=== PATIENT | male | born 1955 | race Caucasian/White ===

== ENCOUNTER 2019-05-26 13:11 | Emergency (ER) | payer OTHER ==
[2019-05-26] MEDS ORDERED: Sodium Chloride 0.9% 10 ML Syringe FLUSH PRN (14:44)
--- NOTE | 2019-05-26 15:13 | EDM.PDOC ---
<Jaimee Samayoa - Last Filed: 05/26/19 18:33> ED HPI GENERAL MEDICAL PROBLEM - General Chief Complaint: Cardiovascular Problem Stated Complaint: NAUSEA Time Seen by Provider: 05/26/19 14:30 Source of Information: Reports: Patient, Family, RN, RN Notes Reviewed History Limitations: Reports: No Limitations - History of Present Illness INITIAL COMMENTS - FREE TEXT/NARRATIVE: patient presents to ER with complaint of chest pain/burning that radiates to the back. He states he also had some numbness down the left arm. Patient states this began about 12:30 today. She states he was working in the garage and going up and down a ladder. Patient states he has 0 pain at this time. When the pain was present he rated the pain a 2-3/10. Patient states he did get nauseated with this episode as well. Denies shortness of breath, vomiting, or diarrhea. Patient admits to hypertension, hyperlipidemia. He states he does not have diabetes, and does have some family history of cardiac disease in his family including his brother and his father. Patient states he smokes minimally, maybe once a week. Denies any cardiac history himself. Onset: Today, Sudden Left Arm Pain Score (Numeric/FACES): 2 - Related Data Allergies Allergy/AdvReac Type Severity Reaction Status Date / Time No Known Allergies Allergy Verified 05/26/19 14:28 Home Meds: Home Meds Aspirin [Halfprin] 81 mg PO DAILY 05/26/19 [History] Losartan [Cozaar] 50 mg PO BID 05/26/19 [History] Past Medical History HEENT History: Reports: Impaired Vision Cardiovascular History: Reports: High Cholesterol - Infectious Disease History Infectious Disease History: Reports: Rheumatic Fever - Past Surgical History Musculoskeletal Surgical History: Reports: Hip Replacement Social & Family History - Tobacco Use Smoking Status *Q: Never Smoker Second Hand Smoke Exposure: No - Recreational Drug Use Recreational Drug Use: No ED ROS GENERAL - Review of Systems Review Of Systems: Comprehensive ROS is negative, except as noted in HPI. ED EXAM, GENERAL - Physical Exam Exam: See Below Exam Limited By: No Limitations General Appearance: Alert, WD/WN, No Apparent Distress Eye Exam: Bilateral Eye: EOMI, Normal Inspection Ears: Normal External Exam, Hearing Grossly Normal Nose: Normal Inspection Throat/Mouth: Normal Inspection, Normal Voice, No Airway Compromise Head: Atraumatic, Normocephalic Neck: Normal Inspection, Supple, Non-Tender, Full Range of Motion Respiratory/Chest: No Respiratory Distress, Lungs Clear, Normal Breath Sounds, No Accessory Muscle Use, Chest Non-Tender Cardiovascular: Normal Peripheral Pulses, Regular Rate, Rhythm, No Edema, No Gallop, No JVD, No Murmur, No Rub Peripheral Pulses: 2+: Radial (L), Radial (R) GI/Abdominal: Normal Bowel Sounds, Soft, Non-Tender, No Organomegaly, No Distention (Male) Exam: Deferred Rectal (Males) Exam: Deferred Back Exam: Normal Inspection, Full Range of Motion, NT Extremities: Normal Inspection, Normal Range of Motion, Non-Tender, Normal Capillary Refill, No Pedal Edema Neurological: Alert, Oriented, CN II-XII Intact, Normal Cognition, Normal Gait, Normal Reflexes, No Motor/Sensory Deficits Psychiatric: Normal Affect, Normal Mood Skin Exam: Warm, Dry, Intact, Normal Color, No Rash Lymphatic: No Adenopathy Course - Vital Signs Last Recorded V/S: Last Vital Signs Temp 36.8 C 05/26/19 14:22 Pulse 74 05/26/19 14:22 Resp 18 05/26/19 14:22 BP 135/74 05/26/19 14:22 Pulse Ox 97 05/26/19 14:22 - Orders/Labs/Meds Orders: Active Orders 24 hr Category Date Time Status EKG Documentation Completion [RC] STAT Care 05/26/19 14:44 Active EKG Documentation Completion [RC] STAT Care 05/26/19 18:52 Active Peripheral IV Care [RC] . DIRECTED Care 05/26/19 14:44 Active Chest 1V Frontal [CR] Stat Exams 05/26/19 14:44 Taken Sodium Chloride 0.9% [Normal Saline] 1,000 ml Med 05/26/19 15:49 Active IV .BOLUS Sodium Chloride 0.9% [Saline Flush] Med 05/26/19 14:44 Active 10 ml FLUSH ASDIRECTED PRN Peripheral IV Insertion Adult [OM.PC] Stat Oth 05/26/19 14:44 Ordered Medication Orders Sodium Chloride (Normal Saline) 1,000 mls @ 200 mls/hr IV .BOLUS ONE Stop: 05/26/19 20:48 Last Admin: 05/26/19 16:02 Dose: 200 mls/hr Sodium Chloride (Saline Flush) 10 ml FLUSH ASDIRECTED PRN PRN Reason: Keep Vein Open Last Admin: 05/26/19 15:15 Dose: 10 ml Labs: Laboratory Tests 05/26/19 05/26/19 05/26/19 Range/Units 14:52 14:52 14:52 WBC 16.0 H (5.0-10.0) 10^3/uL RBC 5.43 (4.6-6.2) 10^6/uL Hgb 16.2 (14.0-18.0) g/dL Hct 46.1 (40.0-54.0) % MCV 84.9 (80-100) fL MCH 29.8 (27.0-34.0) pg MCHC 35.1 H (33.0-35.0) g/dL Plt Count 224 (150-450) 10^3/uL Neut % (Auto) 83.8 H (42.2-75.2) % Lymph % (Auto) 10.3 L (20.5-50.1) % [place] % (Auto) 4.9 (2-8) % Eos % (Auto) 0.8 L (1.0-3.0) % Baso % (Auto) 0.2 (0.0-1.0) % PT 9.7 (9.0-12.0) SEC INR 0.9 (0.9-1.2) Sodium 136 (135-145) mmol/L Potassium 3.8 (3.6-5.0) mmol/L Chloride 104 (101-111) mmol/L Carbon Dioxide 23.0 (21.0-31.0) mmol/L Anion Gap 12.8 BUN 21 H (7-18) mg/dL Creatinine 1.2 (0.6-1.3) mg/dL Est Cr Clr Drug Dosing 59.67 mL/min Estimated GFR (MDRD) > 60 BUN/Creatinine Ratio 17.50 Glucose 94 (74-105) mg/dL Calcium 9.1 (8.4-10.2) mg/dl Total Bilirubin 1.0 (0.2-1.0) mg/dL AST 54 H (10-42) IU/L ALT 38 (10-60) IU/L Alkaline Phosphatase 45 (42-121) IU/L Troponin I < 0.02 (0.00-0.02) ng/ml Total Protein 6.8 (6.7-8.2) g/dl Albumin 4.4 (3.2-5.5) g/dl Globulin 2.4 Albumin/Globulin Ratio 1.83 05/26/19 05/26/19 Range/Units 18:55 18:55 WBC 9.3 (5.0-10.0) 10^3/uL RBC 5.06 (4.6-6.2) 10^6/uL Hgb 14.9 (14.0-18.0) g/dL Hct 43.6 (40.0-54.0) % MCV 86.2 (80-100) fL MCH 29.4 (27.0-34.0) pg MCHC 34.2 (33.0-35.0) g/dL Plt Count 206 (150-450) 10^3/uL Neut % (Auto) 71.2 (42.2-75.2) % Lymph % (Auto) 20.4 L (20.5-50.1) % [place] % (Auto) 6.8 (2-8) % Eos % (Auto) 1.4 (1.0-3.0) % Baso % (Auto) 0.2 (0.0-1.0) % PT (9.0-12.0) SEC INR (0.9-1.2) Sodium (135-145) mmol/L Potassium (3.6-5.0) mmol/L Chloride (101-111) mmol/L Carbon Dioxide (21.0-31.0) mmol/L Anion Gap BUN (7-18) mg/dL Creatinine (0.6-1.3) mg/dL Est Cr Clr Drug Dosing mL/min Estimated GFR (MDRD) BUN/Creatinine Ratio Glucose (74-105) mg/dL Calcium (8.4-10.2) mg/dl Total Bilirubin (0.2-1.0) mg/dL AST (10-42) IU/L ALT (10-60) IU/L Alkaline Phosphatase (42-121) IU/L Troponin I < 0.02 (0.00-0.02) ng/ml Total Protein (6.7-8.2) g/dl Albumin (3.2-5.5) g/dl Globulin Albumin/Globulin Ratio Meds: Medications Generic Name Dose Route Start Last Admin Trade Name Jomar PRN Reason Stop Dose Admin Sodium Chloride 1,000 mls @ 200 mls/hr 05/26/19 15:49 05/26/19 16:02 Normal Saline IV 05/26/19 20:48 200 mls/hr .BOLUS ONE Administration Sodium Chloride 10 ml 05/26/19 14:44 05/26/19 15:15 Saline Flush FLUSH 10 ml ASDIRECTED PRN Administration Keep Vein Open - Radiology Interpretation Free Text/Narrative:: Chest xray: FINDINGS: Lungs: Unremarkable. No consolidation. Pleural space: Unremarkable. No pleural effusion. No pneumothorax. Heart/Mediastinum: Unremarkable. No cardiomegaly. Bones/joints: Unremarkable. IMPRESSION: No acute findings. Thank you for allowing us to participate in the care of your patient. Dictated and Authenticated by: Hayden Brown DO 05/26/2019 3:09 PM Central Time ([place] & [place]) See rad report Departure - Departure Disposition: Home, Self-Care 01 Clinical Impression: Chest pain Qualifiers: Chest pain type: unspecified Qualified Code(s): R07.9 - Chest pain, unspecified Instructions: Chest Wall Pain, [id number] Forms: ED Department Discharge Additional Instructions: 1) rest and avoid bending lifting straining 2) recheck if there is any change or concern Sepsis Event Note - Evaluation Sepsis Screening Result: No Definite Risk - Focused Exam Vital Signs: Vital Signs Temp Pulse Resp BP Pulse Ox 05/26/19 14:22 36.8 C 74 18 135/74 97 Date Exam was Performed: 05/26/19 Time Exam was Performed: 18:33 <Jadon Carr - Last Filed: 05/26/19 20:09> Course - Re-Assessments/Exams Free Text/Narrative Re-Assessment/Exam: 05/26/19 20:07 re-exam; pt has no pain fells fine. repeat ekg & trop negative. pt states the pain occurred this morning only lasted about hour ut decided to have it check. Departure - Departure Time of Disposition: 20:09 Condition: Good Sepsis Event Note - Focused Exam Date Exam was Performed: 05/26/19 Time Exam was Performed: 20:07
[2019-05-26 15:18] LABS: ANION GAP 12.8; CHLORIDE,CL 104 mmol/L (101-111); SODIUM,NA 136 mmol/L (135-145)
[2019-05-26] MEDS ORDERED: Sodium Chloride 0.9% 1,000 ML IV ONE (15:49)
== END 2019-05-26 20:35 | disposition home or self-care (01) ==
LOC: DL.ED 13:11
DX: R07.9 Chest pain, unspecified (principal); Z79.82 Long term (current) use of aspirin
CPT/HCPCS: 36415; 71045; 80053; 84484; 85025; 85610; 93005; 96360; 96361; 99285; J7030

== ENCOUNTER 2020-06-12 17:43 | Emergency (ER) | payer OTHER ==
[2020-06-12] MEDS ORDERED: Ondansetron 4 MG Tab.DIS PO ONE (17:44)
[2020-06-12] MEDS ORDERED: Ondansetron 4 MG/2 ML SDV IVPUSH ONE (19:08)
[2020-06-12] MEDS ORDERED: Sodium Chloride 0.9% 1,000 ML IV ONE (19:08)
[2020-06-12 20:08] LABS: CHLORIDE,CL 100 mmol/L (98-107); SODIUM,NA 140 mmol/L (136-145)
[2020-06-12 20:18] LABS: CORONAVIRUS COVID-19 NAA NEGATIVE (NEGATIVE)
[2020-06-12] MEDS ORDERED: Iopamidol 612 MG/ML 100 ML Bottle IVPUSH ONE (20:23)
--- NOTE | 2020-06-12 20:29 | EDM.PDOC ---
ED HPI GENERAL MEDICAL PROBLEM - General Chief Complaint: Gastrointestinal Problem Stated Complaint: THROWING UP, CHILLS Time Seen by Provider: 06/12/20 20:15 Source of Information: Reports: Patient History Limitations: Reports: No Limitations - History of Present Illness INITIAL COMMENTS - FREE TEXT/NARRATIVE: This 65 yo male patient reports to the ED due to a 2 day history of nausea/vomiting along with left upper quadrant abdominal pain. The patient reports he has not been able to rest due to nausea/vomiting. The patient reports he has not been able to do anything to make his symptoms better or worse. The patient denies any recent alcohol use. Onset Date: 06/11/20 Duration: Constant Location: Reports: Abdomen Quality: Reports: Other Severity: Moderate Improves with: Reports: None Worsens with: Reports: None Context: Reports: Other Associated Symptoms: Reports: Nausea/Vomiting Abdomen Pain Score (Numeric/FACES): 7 - Related Data Allergies Allergy/AdvReac Type Severity Reaction Status Date / Time No Known Allergies Allergy Verified 06/12/20 19:07 Home Meds: Home Meds Aspirin [Halfprin] 81 mg PO DAILY 05/26/19 [History] Losartan [Cozaar] 25 mg PO BID 05/26/19 [History] Losartan [Cozaar] 50 mg PO BEDTIME 06/12/20 [History] Past Medical History HEENT History: Reports: Impaired Vision Cardiovascular History: Reports: High Cholesterol, Hypertension - Infectious Disease History Infectious Disease History: Reports: Rheumatic Fever - Past Surgical History Musculoskeletal Surgical History: Reports: Hip Replacement Social & Family History - Tobacco Use Tobacco Use Status *Q: Never Tobacco User - Caffeine Use Caffeine Use: Reports: Soda - Recreational Drug Use Recreational Drug Use: No ED ROS GENERAL - Review of Systems Review Of Systems: Comprehensive ROS is negative, except as noted in HPI. ED EXAM, GI/ABD - Physical Exam Exam: See Below Exam Limited By: No Limitations General Appearance: Alert, WD/WN, Moderate Distress Eyes: Bilateral: Normal Appearance, EOMI Ears: Normal External Exam, Normal Canal, Hearing Grossly Normal, Normal TMs Nose: Normal Inspection, Normal Mucosa, No Blood Throat/Mouth: Normal Inspection, Normal Lips, Normal Teeth, Normal Gums, Normal Oropharynx, Normal Voice, No Airway Compromise Head: Atraumatic, Normocephalic Neck: Normal Inspection, Supple, Non-Tender, Full Range of Motion Respiratory/Chest: No Respiratory Distress, Lungs Clear, Normal Breath Sounds, No Accessory Muscle Use, Chest Non-Tender Cardiovascular: Normal Peripheral Pulses, Regular Rate, Rhythm, No Edema, No Gallop, No JVD, No Murmur, No Rub GI/Abdominal Exam: Tender (Left upper quadrant abdominal pain) (Male) Exam: Deferred Rectal (Males) Exam: Deferred Back Exam: Normal Inspection, Full Range of Motion, NT Extremities: Normal Inspection, Normal Range of Motion, Non-Tender, Normal Capillary Refill, No Pedal Edema Neurological: Alert, Oriented, CN II-XII Intact, Normal Cognition, Normal Gait, Normal Reflexes, No Motor/Sensory Deficits Psychiatric: Normal Affect, Normal Mood Skin Exam: Warm, Dry, Intact, Normal Color, No Rash Lymphatic: No Adenopathy Course - Vital Signs Last Recorded V/S: Last Vital Signs Temp 36.2 C 06/12/20 19:11 Pulse 82 06/12/20 19:11 Resp 16 06/12/20 19:11 BP 176/84 H 06/12/20 19:11 Pulse Ox 100 06/12/20 19:11 - Orders/Labs/Meds Orders: Active Orders 24 hr Category Date Time Status CULTURE BLOOD [BC] Stat Lab 06/12/20 19:24 Received DRUG SCREEN URINE BIORAD [URCHEM] Stat Lab 06/12/20 19:08 Ordered UA RFX NIKITA AND CULT IF INDIC [URIN] Urgent Lab 06/12/20 19:08 Ordered Sodium Chloride 0.9% [Normal Saline] 1,000 ml Med 06/12/20 19:08 Active IV .BOLUS Medication Orders Sodium Chloride (Normal Saline) 1,000 mls @ 250 mls/hr IV .BOLUS ONE Stop: 06/12/20 23:07 Last Admin: 06/12/20 19:24 Dose: 250 mls/hr Documented by: [id number] Labs: Laboratory Tests 06/12/20 06/12/20 06/12/20 Range/Units 19:13 19:24 19:24 WBC 8.9 (5.0-10.0) 10^3/uL RBC 5.75 (4.6-6.2) 10^6/uL Hgb 17.3 D (14.0-18.0) g/dL Hct 48.7 (40.0-54.0) % MCV 84.7 (80-100) fL MCH 30.1 (27.0-34.0) pg MCHC 35.5 H (33.0-35.0) g/dL Plt Count 234 (150-450) 10^3/uL Neut % (Auto) 85.9 H (42.2-75.2) % Lymph % (Auto) 11.5 L (20.5-50.1) % [place] % (Auto) 2.3 (2-8) % Eos % (Auto) 0.1 L (1.0-3.0) % Baso % (Auto) 0.2 (0.0-1.0) % Sodium 140 (136-145) mmol/L Potassium 4.0 (3.5-5.1) mmol/L Chloride 100 (98-107) mmol/L Carbon Dioxide 25 (21-32) mmol/L Anion Gap 19.0 H (7-13) mEq/L BUN 17 (7-18) mg/dL Creatinine 1.28 (0.70-1.30) mg/dL Est Cr Clr Drug Dosing 55.23 mL/min Estimated GFR (MDRD) 57 BUN/Creatinine Ratio 13.3 (No establ ref range) Glucose 153 H (74-99) mg/dL Lactic Acid (0.4-2.0) mmol/L Calcium 9.8 (8.5-10.1) mg/dL Total Bilirubin 3.1 H (0.2-1.0) mg/dL AST 638 H (15-37) U/L ALT 841 H (16-63) U/L Alkaline Phosphatase 126 H (46-116) U/L Total Protein 7.6 (6.4-8.2) g/dL Albumin 4.8 (3.4-5.0) g/dL Globulin 2.8 Albumin/Globulin Ratio 1.7 Amylase (25-115) U/L Lipase (73-393) U/L Ethyl Alcohol < 3 (0) mg/dL Influenza Type A RNA Negative (NEGATIVE) Influenza Type B RNA Negative (NEGATIVE) SARS-CoV-2 RNA (NICANOR) Negative (NEGATIVE) 06/12/20 06/12/20 Range/Units 19:24 19:24 WBC (5.0-10.0) 10^3/uL RBC (4.6-6.2) 10^6/uL Hgb (14.0-18.0) g/dL Hct (40.0-54.0) % MCV (80-100) fL MCH (27.0-34.0) pg MCHC (33.0-35.0) g/dL Plt Count (150-450) 10^3/uL Neut % (Auto) (42.2-75.2) % Lymph % (Auto) (20.5-50.1) % [place] % (Auto) (2-8) % Eos % (Auto) (1.0-3.0) % Baso % (Auto) (0.0-1.0) % Sodium (136-145) mmol/L Potassium (3.5-5.1) mmol/L Chloride (98-107) mmol/L Carbon Dioxide (21-32) mmol/L Anion Gap (7-13) mEq/L BUN (7-18) mg/dL Creatinine (0.70-1.30) mg/dL Est Cr Clr Drug Dosing mL/min Estimated GFR (MDRD) BUN/Creatinine Ratio (No establ ref range) Glucose (74-99) mg/dL Lactic Acid 2.7 H* (0.4-2.0) mmol/L Calcium (8.5-10.1) mg/dL Total Bilirubin (0.2-1.0) mg/dL AST (15-37) U/L ALT (16-63) U/L Alkaline Phosphatase (46-116) U/L Total Protein (6.4-8.2) g/dL Albumin (3.4-5.0) g/dL Globulin Albumin/Globulin Ratio Amylase 39 (25-115) U/L Lipase 88 (73-393) U/L Ethyl Alcohol (0) mg/dL Influenza Type A RNA (NEGATIVE) Influenza Type B RNA (NEGATIVE) SARS-CoV-2 RNA (NICANOR) (NEGATIVE) Meds: Medications Generic Name Dose Route Start Last Admin Trade Name Freq PRN Reason Stop Dose Admin Sodium Chloride 1,000 mls @ 250 mls/hr 06/12/20 19:08 06/12/20 19:24 Normal Saline IV 06/12/20 23:07 250 mls/hr .BOLUS ONE Administration Discontinued Medications Generic Name Dose Route Start Last Admin Trade Name Freq PRN Reason Stop Dose Admin Iopamidol 100 ml 06/12/20 20:23 06/12/20 20:57 Isovue-300 (61%) IVPUSH 06/12/20 20:24 100 ml ONETIME ONE Administration Ondansetron HCl 4 mg 06/12/20 19:08 06/12/20 19:24 Zofran IVPUSH 06/12/20 19:09 4 mg ONETIME ONE Administration Departure - Departure Time of Disposition: 21:31 Disposition: Home, Self-Care 01 Condition: Fair Clinical Impression: Gastroenteritis - Discharge Information *PRESCRIPTION DRUG MONITORING PROGRAM REVIEWED*: Not Applicable *COPY OF PRESCRIPTION DRUG MONITORING REPORT IN PATIENT SANTOSH: Not Applicable Instructions: Viral Gastroenteritis, Adult, [id number] Forms: ED Department Discharge Care Plan Goals: The patient was advised of the examination, CT and lab results during the visit. The patient was given IV fluids and IV Zofran while in the ED. The patient was discharged with Zofran ODT (4 mg) #3 to take 1 by mouth every 6 hours and a script for Zofran (4 mg) #20 to take 1 by mouth every 6 hours as needed for nausea. The patient was encouraged to stick to a BRAT diet (bananas, rice, applesauce and toast) with small frequent sips of fluid. If the patient has any additional symptoms or concerns, the patient should either return to the emergency department or follow-up with his primary care facility. Sepsis Event Note (ED) - Evaluation Sepsis Screening Result: No Definite Risk - Focused Exam Vital Signs: Vital Signs Temp Pulse Resp BP Pulse Ox 06/12/20 19:11 36.2 C 82 16 176/84 H 100 - My Orders Last 24 Hours: My Active Orders 06/12/20 19:08 DRUG SCREEN URINE BIORAD [URCHEM] Stat UA RFX NIKITA AND CULT IF INDIC [URIN] Urgent Sodium Chloride 0.9% [Normal Saline] 1,000 ml IV .BOLUS 06/12/20 19:24 CULTURE BLOOD [BC] Stat - Assessment/Plan Last 24 Hours: My Active Orders 06/12/20 19:08 DRUG SCREEN URINE BIORAD [URCHEM] Stat UA RFX NIKITA AND CULT IF INDIC [URIN] Urgent Sodium Chloride 0.9% [Normal Saline] 1,000 ml IV .BOLUS 06/12/20 19:24 CULTURE BLOOD [BC] Stat
--- NOTE | 2020-06-12 21:19 | CT ---
PROCEDURE INFORMATION: Exam: CT Abdomen And Pelvis With Contrast Exam date and time: 06/12/2020 8:32 PM Age: 65 years old Clinical indication: Other: Abdominal pain with nausea/vomiting TECHNIQUE: Imaging protocol: Computed tomography of the abdomen and pelvis with intravenous contrast. Radiation optimization: All CT scans at this facility use at least one of these dose optimization techniques: automated exposure control; mA and/or kV adjustment per patient size (includes targeted exams where dose is matched to clinical indication); or iterative reconstruction. Contrast material: ISOVUE 300; Contrast volume: 100 ml; Contrast route: INTRAVENOUS (IV); COMPARISON: No relevant prior studies available. FINDINGS: Lungs: Linear atelectasis/scarring at each lung base. There are dependent subpleural ground-glass posterior densities at each lung base, that could reflect pneumonitis or passive atelectasis. Liver: The liver is normal in architecture, without suspicious abnormality. Several small lucent hepatic nodules measuring up to 1.7 cm that are consistent with congenital cysts and require no further workup according to guidelines. Gallbladder and bile ducts: Cholelithiasis. No stranding of pericholecystic fat, gas in or thickening of the gallbladder wall, hydrops, mass, or biliary ductal dilatation. Pancreas: The pancreatic parenchyma is normal in bulk and sharply marginated. Duct is not dilated. No calcifications, masses, or abnormal fluid collections. Spleen: Spleen is normal in size. No mass or fluid collection. Adrenal glands: There are no adrenal masses. Kidneys and ureters: Both kidneys are normal in parenchymal bulk. No hydronephrosis, stone, or solid mass. Stomach and bowel: There is a small hiatal hernia. No significant abnormalities of the stomach. There are no dilated or thickened small bowel loops. Gas and stool are seen in the colon to the rectum. No mass. There are multiple colonic diverticula, concentrated primarily distally. Appendix: The appendix is seen. It is normal. Intraperitoneal space: No ascites. No abscess. No inflammation within the intra-abdominal fat. No pneumoperitoneum. No mass. Vasculature: There is atherosclerotic calcification of the aorto-iliac tree. There is no abdominal aortic aneurysm. Lymph nodes: There are no enlarged celiac, mesenteric, periportal, extraperitoneal or inguinal lymph nodes. Urinary bladder: There is no bladder wall thickening, mass, or calculus. Reproductive: Prostate gland is normal in size. The seminal vesicles are unremarkable. Bones/joints: Left hip hemiarthroplasty. Mild right hip degenerative joint disease. Age-appropriate spondylosis. Soft tissues: See "Intraperitoneal space" finding. IMPRESSION: 1. No sign of acute intra-abdominal pathology. 2. There are dependent subpleural ground-glass posterior densities at each lung base, that could reflect pneumonitis or passive atelectasis.
[2020-06-12] MEDS ORDERED: Ondansetron 4 MG Tab.DIS ONE (21:32)
== END 2020-06-12 21:38 | disposition home or self-care (01) ==
LOC: DL.ED 17:43
DX: K52.9 Noninfective gastroenteritis and colitis, unspecified (principal); I10 Essential (primary) hypertension; Z20.822 Contact with and (suspected) exposure to COVID-19; Z79.82 Long term (current) use of aspirin
CPT/HCPCS: 0240U; 36415; 74177; 80053; 80307; 82150; 83605; 83690; 85025; 87040; 96374; 99284; A9270; J2405; J7030; Q9967

== ENCOUNTER 2021-09-23 06:34 | Day surgery (SDC) | payer OTHER ==
[~2021-09-23 06:34] MED LIST: Dextrose 5%-0.45% NaCl 1,000 ML IV SCH; Midazolam 1 MG/ML 2 ML SDV ONE; Sodium Chloride 0.9% 10 ML Syringe FLUSH PRN; Sodium Chloride 0.9% 10 ML Syringe FLUSH SCH; fentaNYL 100 MCG/2 ML SDV ONE
[2021-09-23] MEDS ORDERED: fentaNYL 100 MCG/2 ML SDV IV ONE ×3 (06:35→08:11)
[2021-09-23] MEDS ORDERED: Midazolam 1 MG/ML 2 ML SDV IV ONE ×6 (06:35→08:23)
== END 2021-09-23 10:30 | disposition home or self-care (01) ==
LOC: DL.ENDO 06:34
PROVIDERS: ATTEND Internal Medicine Gastroenterology
DX: Z12.11 Encounter for screening for malignant neoplasm of colon (principal); K57.30 Diverticulosis of large intestine without perforation or abscess without bleeding; I10 Essential (primary) hypertension; E66.09 Other obesity due to excess calories; E78.00 Pure hypercholesterolemia, unspecified; Z98.890 Other specified postprocedural states; Z01.812 Encounter for preprocedural laboratory examination; Z20.822 Contact with and (suspected) exposure to COVID-19; Z87.891 Personal history of nicotine dependence
CPT/HCPCS: J2250; J3010; J7042; U0002